=== PATIENT | male | born 1990 | race Caucasian/White ===

== ENCOUNTER 2017-09-25 17:00 | Emergency (ER) | payer OTHER ==
--- NOTE | 2017-09-25 17:14 | ED PDOC ---
Arrival/HPI - General Time Seen by Provider: 09/25/17 17:06 Historian: Patient - History of Present Illness Narrative History of Present Illness (Text): 09/25/17 17:08 26 y/o male, pmh including bronchitis, nkda, c/o palpitation and nervous for the past 2 days. Pt. was seen here about 9 days ago for bronchitis, feels completely relief, stated that he has been feeling anxious/palpitation and nervousness for the past 2 days, no drug abuse except he smokes marijuanna. Pt. stated that he feels very anxious, last claritin d24 about 4 days ago and been using albuterol nebulizer at home every day, no change in vision, no rash, no abdominal pain, no flank or back pain, no tearing pain on the back or shoulder, no other medical or psychological complaints. Past Medical History - Provider Review Nursing Documentation Reviewed: Yes - Infectious Disease Hx of Infectious Diseases: None - Tetanus Immunization Tetanus Immunization: Unknown - Psychiatric Hx Psychophysiologic Disorder: No Hx Substance Use: Yes - Surgical History Hx Orthopedic Surgery: Yes (right ankle) - Anesthesia Hx Anesthesia: Yes Hx Anesthesia Reactions: No Hx Malignant Hyperthermia: No Family/Social History - Physician Review Nursing Documentation Reviewed: Yes Family/Social History: Unknown Family HX Smoking Status: Heavy Smoker > 10 Cigarettes Daily Hx Alcohol Use: Yes Hx Substance Use: Yes Substance used: CANNABIS Allergies/Home Meds Allergies/Adverse Reactions: Allergies No Known Allergies Allergy (Verified 12/29/16 11:57) Review of Systems - Review of Systems Constitutional: absent: Fatigue, Fevers Eyes: absent: Vision Changes ENT: absent: Hearing Changes Respiratory: absent: SOB, Cough Cardiovascular: Chest Pain Gastrointestinal: absent: Abdominal Pain, Nausea, Vomiting Musculoskeletal: absent: Arthralgias, Back Pain, Myalgias Skin: absent: Rash, Pruritis, Skin Lesions Neurological: absent: Headache, Dizziness Psychiatric: Anxiety. absent: Depression, Suicidal Ideation Physical Exam Vital Signs Reviewed: Yes Vital Signs Temp Pulse Resp BP Pulse Ox 09/25/17 20:24 87 16 114/65 99 09/25/17 17:21 98.2 F 101 H 16 140/70 99 Temperature: Afebrile Blood Pressure: Normal Pulse: Regular Respiratory Rate: Normal Appearance: Positive for: Well-Appearing, Non-Toxic, Comfortable Pain Distress: Mild Mental Status: Positive for: Alert and Oriented X 3 - Systems Exam Head: Present: Atraumatic, Normocephalic Pupils: Present: PERRL Extroacular Muscles: Present: EOMI Conjunctiva: Present: Normal Mouth: Present: Moist Mucous Membranes Neck: Present: Normal Range of Motion Respiratory/Chest: Present: Clear to Auscultation, Good Air Exchange. No: Respiratory Distress, Accessory Muscle Use Cardiovascular: Present: Regular Rate and Rhythm, Normal S1, S2, Tachycardic, Other (no pedal edema). No: Murmurs, Rub, Gallop Abdomen: Present: Normal Bowel Sounds. No: Tenderness, Distention, Peritoneal Signs Back: Present: Normal Inspection, Other (no bruits). No: CVA Tenderness, Midline Tenderness Upper Extremity: Present: Normal Inspection. No: Cyanosis, Edema Lower Extremity: Present: Normal Inspection. No: Edema Neurological: Present: GCS=15, Speech Normal, Motor Func Grossly Intact, Gait Normal, Memory Normal Skin: Present: Warm, Dry, Normal Color. No: Rashes Psychiatric: Present: Alert, Oriented x 3, Normal Insight, Normal Concentration Medical Decision Making ED Course and Treatment: 09/25/17 17:18 -labs/ua/uds/ddimer (base on the wells criteria) and troponin (symptomatic for over 24 hours). -ekg/cxr -IVF/valium -observe and reassess 09/25/17 20:37 -EKG: NSR @ 89 BPM, no ST elevation or depression, no T wave inversion. -Chest xray: no active disease -Labs are non-significant except wbc 15 but he just completed IV and po prednisone, afebrile plus likely anxious induced with steroid induced as well. -Troponin negative after 24 hours of symptoms. -Thyroid panel is negative. -Ddimer is negative -UA show no UTI -UDS show +benzo -Pt. feels completely relief after the IV valium and IVF. -Pt. has no signs of withdrawal. I offered the patient admission for over night observation but he refused. He stated that he will come back if the symptoms happened again -Pt. refused psychiatric evaluation. -Case discussed with Dr. Mcarthur, agreed that no other testings or admission needed at this time if the patient wishes to be discharged home. -Discharge home with education on avoid any illegal drugs/caffeine/energy drinks , follow up with your own pmd within 2 days, return to the ER for any new or worsening signs or symptoms. - Lab Interpretations Lab Results: 09/25/17 17:55 09/25/17 17:55 Lab Results 09/25/17 17:55: Free T4 1.09, TSH 3rd Generation 1.85 09/25/17 17:55: Urine Opiates Screen Negative, Urine Methadone Screen Negative, Ur Barbiturates Screen Negative, Ur Phencyclidine Scrn Negative, Ur Amphetamines Screen Negative, U Benzodiazepines Scrn Negative, U Oth Cocaine Metabols Negative, U Cannabinoids Screen Positive H 09/25/17 17:55: Sodium 139, Potassium 3.6, Chloride 101, Carbon Dioxide 29, Anion Gap 13, BUN 20, Creatinine 1.1, Est GFR ( Amer) > 60, Est GFR (Non- Af Amer) > 60, Random Glucose 128 H, Calcium 9.4, Magnesium 2.3 H, Total Bilirubin 0.3, AST 25, ALT 54, Alkaline Phosphatase 91, Lactate Dehydrogenase 374, Total Creatine Kinase 130, Troponin I < 0.01, Total Protein 7.6, Albumin 4.4, Globulin 3.2, Albumin/Globulin Ratio 1.3 09/25/17 17:55: Urine Color Yellow, Urine Appearance Clear, Urine pH 6.0, Ur Specific [place] 1.025, Urine Protein Trace H, Urine Glucose (UA) Negative, Urine Ketones Trace H, Urine Blood Small H, Urine Nitrate Negative, Urine Bilirubin Negative, Urine Urobilinogen 0.2, Ur Leukocyte Esterase Negative, Urine RBC 5 - 10, Urine WBC 0 - 2, Ur Epithelial Cells None, Urine Bacteria Few 09/25/17 17:55: D-Dimer, Quantitative < 200 09/25/17 17:55: WBC 15.2 H D, RBC 5.37, Hgb 14.6, Hct 44.2, MCV 82.3, MCH 27.2, MCHC 33.0, RDW 14.7 H, Plt Count 302, MPV 9.8, Gran % 72.3 H, Lymph % (Auto) 17.1 L, [place] % (Auto) 9.5 H, Eos % (Auto) 0.9 L, Baso % (Auto) 0.2, Gran # 10.96 H, Lymph # 2.6, [place] # 1.4 H, Eos # 0.1, Baso # 0.03 I have reviewed the lab results: Yes Interpretation: Abnormal lab values (+benzo in the urine) - RAD Interpretation Radiology Orders: 09/25/17 17:19 CHEST PORTABLE [RAD] Stat no interval acute cardiopulmonary changes. Audit Manager: Radiologist - EKG Interpretation EKG Interpretation (Text): 09/25/17 17:46 NSR @ 89 BPM, no ST elevation or depression, no T wave inversion. Interpreted by ED Physician: Yes Type: 12 lead EKG - Medication Orders Current Medication Orders: Discontinued Medications Diazepam (Valium) 7.5 mg IVP ONCE ONE PRN Reason: Protocol Stop: 09/25/17 17:20 Last Admin: 09/25/17 17:57 Dose: 7.5 mg IVP Administration Document 09/25/17 17:57 HI (Rec: 09/25/17 17:57 NM [id number]) Charges for Administration # of IVP Administrations 1 Sodium Chloride (Sodium Chloride 0.9%) 1,000 mls @ 999 mls/hr IV .Q1H1M STA Stop: 09/25/17 18:19 Last Admin: 09/25/17 17:57 Dose: 999 mls/hr eMAR Start Stop Document 09/25/17 17:57 HI (Rec: 09/25/17 17:57 [id number] Intravenous Solution Start Date 09/25/17 Start Time 17:57 - PA / PROMOTIONS REPRESENTATIVE / Resident Statement MD/DO has reviewed & agrees with the documentation as recorded. Disposition/Present on Arrival - Present on Arrival Any Indicators Present on Arrival: No History of DVT/PE: No History of Uncontrolled Diabetes: No Urinary Catheter: No History of Decub. Ulcer: No History Surgical Site Infection Following: None - Disposition Have Diagnosis and Disposition been Completed?: Yes Diagnosis: Leukocytosis, Anxiety Disposition: HOME/ ROUTINE Disposition Time: 20:37 Patient Plan: Discharge Condition: IMPROVED Additional Instructions: -Discharge home with education on avoid any illegal drugs/caffeine/energy drinks , follow up with your own pmd within 2 days, return to the ER for any new or worsening signs or symptoms. Referrals: Xavier Sena MD [Primary Care Provider] - Follow up with primary Jamey Sorto MD [Staff Provider] - Follow up with primary Forms: WORK NOTE
[2017-09-25 17:19] VITALS: BMI 35.2
[2017-09-25] MEDS ORDERED: Sodium Chloride 0.9% 1,000 ML IV STA (17:19)
[2017-09-25] MEDS ORDERED: diaZEpam 10 mg/2 ml Inj IVP ONE (17:19)
[2017-09-25 17:23] VITALS: RESP 16; TEMP 98.2; O2SAT 99
[2017-09-25 18:09] LABS: BASO # 0.03 K/mm3 (0.0-2.0); BASO % 0.2 % (0.0-3.0); EOS # 0.1 (0.0-0.7); EOS % 0.9 % (1.5-5.0); GRAN # 10.96 (1.4-6.5); GRAN % 72.3 % (50.0-68.0); HEMATOCRIT 44.2 % (42.0-52.0); LYMPH # 2.6 (1.2-3.4); LYMPH % 17.1 % (22.0-35.0); MEAN CELL VOLUME 82.3 fl (80.0-105.0); MEAN CORPUSCULAR HEMOGLOBIN 27.2 pg (25.0-35.0); MEAN PLATELET VOLUME 9.8 fl (7.0-11.0); MONO # 1.4 (0.1-0.6); MONO % 9.5 % (1.0-6.0); RED CELL DISTRIBUTION WIDTH 14.7 % (11.5-14.5); WHITE BLOOD COUNT 15.2 10^3/ul (4.5-11.0)
[2017-09-25 18:10] LABS: URINE BILIRUBIN NEGATIVE (NEGATIVE); URINE BLOOD SMALL (NEGATIVE); URINE GLUCOSE (UA) NEGATIVE (NEGATIVE); URINE KETONE TRACE mg/dL (NEGATIVE); URINE LEUKOCYTE ESTERASE NEGATIVE Leu/uL (NEGATIVE); URINE PROTEIN TRACE mg/dL (<30 mg/dL); URINE UROBILINOGEN 0.2 E.U./dL (<1 E.U./dL)
[2017-09-25 18:17] LABS: URINE APPEARANCE CLEAR (CLEAR); URINE COLOR YELLOW (YELLOW)
[2017-09-25 18:24] LABS: ALB/GLOB RATIO 1.3 (1.1-1.8); ALKALINE PHOSPHATASE 91 U/L (38-126); ALT/SGPT 54 U/L (7-56); AST/SGOT 25 U/L (17-59); BILIRUBIN,TOTAL 0.3 mg/dL (0.2-1.3); BLOOD UREA NITROGEN 20 mg/dL (7-21); CALCIUM 9.4 mg/dL (8.4-10.5); CARBON DIOXIDE 29 mmol/L (21-33); CHLORIDE 101 mmol/L (98-107); GFR AFRICAN-AMERICAN > 60; GLUCOSE,RANDOM 128 mg/dL (70-110); MAGNESIUM 2.3 mg/dL (1.7-2.2); POTASSIUM 3.6 mmol/L (3.6-5.0); SODIUM 139 mmol/L (132-148); TOTAL PROTEIN 7.6 g/dL (5.8-8.3)
[2017-09-25 18:33] LABS: URINE BACTERIA FEW (NEG); URINE WBC 0 - 2 /hpf (0-6)
[2017-09-25 18:34] LABS: TROPONIN I < 0.01 ng/mL
[2017-09-25 18:54] LABS: THYROID STIMULATING HORMONE 1.85 mIU/mL (0.46-4.68)
[2017-09-25 20:08] LABS: FREE T4 1.09 ng/dL (0.78-2.19)
[2017-09-25 20:25] VITALS: BP 114/65; PULSE 87
--- NOTE | 2017-09-26 08:18 | RAD ---
HISTORY: medical clearance COMPARISON: Portable chest 09/16/2017. FINDINGS: LUNGS: No active pulmonary disease. PLEURA: No significant pleural effusion identified, no pneumothorax apparent. CARDIOVASCULAR: Normal. OSSEOUS STRUCTURES: No significant abnormalities. VISUALIZED UPPER ABDOMEN: Normal. OTHER FINDINGS: None. IMPRESSION: No interval acute cardiopulmonary disease appreciated.
--- NOTE | 2017-09-27 19:58 | CARD ---
APPROVED REPORT EKG Measurement Heart [id number] <Conclusion> Normal sinus rhythm Normal ECG
== END 2017-09-25 20:56 | disposition home or self-care (01) ==
LOC: ED 17:00
DX: D72.829 Elevated white blood cell count, unspecified (principal); F41.9 Anxiety disorder, unspecified
CPT/HCPCS: 71010; 80053; 80324; 80345; 80346; 80349; 80353; 80358; 80361; 81001; 82550; 83615; 83735; 83992; 84439; 84443; 84484; 85025; 85378; 96374; 99284; J3360; J7040